=== PATIENT | male | born 1955 | race Caucasian/White ===

== ENCOUNTER 2021-03-02 15:30 | Emergency (ER) | payer MEDICARE ==
[~2021-03-02 15:30] MED LIST: ANTIVERT12.5 M1 PO; LIPITOR 10MG TA10 MG PO; LO-DOSE ASPIRIN81 MG PO; MELATIN3 MG PO; SYNTHROID112 MCG PO; TRAMADOL HCL50 MG PO; UROXATRAL10 MG PO
[2021-03-02 17:02] LABS: BASOPHIL 0.8 % (0-2); EOSINOPHIL 0.6 % (0-5); HCT 49.6 % (42.0-52.0); HGB 16.3 g/dl (13.2-18.0); LYMPHOCYTE 10.4 % (15-48); MCH 30.9 pg (25.0-31.0); MCHC 32.9 g/dL (32.0-36.0); MCV 94.1 fL (78.0-100.0); MONOCYTE 6.7 % (0-12); MPV 9.2 fL (6.0-9.5); NEUTROPHIL 81.1 % (41-80); NRBC 0; PLT 260 K/uL (150-400); RBC 5.27 M/uL (4.70-6.00); RDW 12.5 % (11.5-14.0)
[2021-03-02 17:10] LABS: BILIRUBIN - TOTAL 0.4 mg/dL (0.2-1.0); BUN/CREAT RATIO (CALC) 18.3 RATIO; CREATININE 1.15 mg/dL (0.67-1.17); POTASSIUM 4.3 mmol/L (3.5-5.1)
[2021-03-02 17:48] LABS: BILIRUBIN NEGATIVE (NEGATIVE); BLOOD 3+ Ery/uL (NEGATIVE); CLARITY CLEAR (CLEAR); COLOR YELLOW (YELLOW); GLUCOSE (U) NORMAL (NORMAL); LEUKOCYTES NEGATIVE Leu/uL (NEGATIVE); NITRITE NEGATIVE (NEGATIVE); PROTEIN 1+ mg/dL (NEGATIVE); SPECIFIC GRAVITY >=1.030 (1.001-1.030); pH 5.5 (5.0-9.0)
[2021-03-02 18:01] LABS: BACTERIA 1+; MUCOUS MODERATE; RENAL EPITHELIAL CELLS RARE; URINARY RBC TNTC
[2021-03-02 18:02] LABS: AMORPHOUS URATES CRYSTALS TRACE; CALCIUM OXALATE CRYSTALS MODERATE
[2021-03-02] MEDS ORDERED: NORCO 5-325 TA1 EACH PO (19:15)
[2021-03-02] MEDS ORDERED: BACTRIM DS TAB1 EACH PO (19:15)
[2021-03-02] MEDS ORDERED: FLOMAX 0.4 MG0.4 MG PO (19:15)
== END 2021-03-02 19:30 | disposition home or self-care (01) ==
LOC: FER 15:30
PROVIDERS: Nurse Practitioner Family
DX: N13.2 Hydronephrosis with renal and ureteral calculous obstruction (principal); F17.210 Nicotine dependence, cigarettes, uncomplicated; Z87.442 Personal history of urinary calculi
CPT/HCPCS: 36415; 80053; 81001; 85025; 87088; J1170; J2270; J2405; J7030

== ENCOUNTER 2021-03-05 02:06 | Emergency (ER) | payer OTHER ==
[~2021-03-05 02:06] MED LIST changes: +BACTRIM DS TAB1 EACH PO; +FLOMAX 0.4 MG0.4 MG PO; +NORCO 5-325 TA1 EACH PO
[2021-03-05 04:21] LABS: BASOPHIL 0.6 % (0-2); EOSINOPHIL 2.3 % (0-5); HCT 44.5 % (42.0-52.0); HGB 14.7 g/dl (13.2-18.0); LYMPHOCYTE 12.3 % (15-48); MCH 30.8 pg (25.0-31.0); MCV 93.3 fL (78.0-100.0); MONOCYTE 7.2 % (0-12); MPV 9.5 fL (6.0-9.5); NEUTROPHIL 77.3 % (41-80); NRBC 0; PLT 212 K/uL (150-400); RBC 4.77 M/uL (4.70-6.00); RDW 12.5 % (11.5-14.0); WBC 9.7 K/uL (4.0-10.5)
[2021-03-05 04:35] LABS: ALBUMIN 3.5 g/dL (3.4-5.0); BILIRUBIN - TOTAL 0.3 mg/dL (0.2-1.0); GLOBULIN (CALCULATION) 3.5 g/dL; POTASSIUM 4.4 mmol/L (3.5-5.1)
[2021-03-05 04:45] LABS: BILIRUBIN NEGATIVE (NEGATIVE); BLOOD 2+ Ery/uL (NEGATIVE); CLARITY CLEAR (CLEAR); COLOR YELLOW (YELLOW); GLUCOSE (U) NORMAL (NORMAL); LEUKOCYTES NEGATIVE Leu/uL (NEGATIVE); NITRITE NEGATIVE (NEGATIVE); PROTEIN NEGATIVE (NEGATIVE); SPECIFIC GRAVITY 1.025 (1.001-1.030)
[2021-03-05 04:51] LABS: CALCIUM OXALATE CRYSTALS TRACE
== END 2021-03-05 09:30 | disposition other institution (70) ==
LOC: FER 02:06
PROVIDERS: Emergency Medicine
DX: R10.9 Unspecified abdominal pain (principal); F17.210 Nicotine dependence, cigarettes, uncomplicated; E03.9 Hypothyroidism, unspecified; Z79.899 Other long term (current) drug therapy
CPT/HCPCS: 36415; 80053; 81001; 83690; 85025; J1170; J1885; J2405; J7030